=== PATIENT | female | born 1955 | race Caucasian/White ===

== ENCOUNTER 2017-03-01 14:21 | Emergency (ER) | payer MEDICARE, OTHER ==
[~2017-03-01] VITALS: Ht 167.6 cm; Wt 95.5 kg
[2017-03-01 14:27] VITALS: BP 114/47
[2017-03-01 14:38] LABS: GLUCOSE,POINT OF CARE 154 MG/DL (70-110)
== END 2017-03-01 17:31 | disposition home or self-care (01) ==
LOC: EMS 14:24
DX: M79.672 Pain in left foot (principal); E11.9 Type 2 diabetes mellitus without complications
CPT/HCPCS: 82962; 99284

== ENCOUNTER 2017-04-06 14:35 | Emergency (ER) | payer MEDICARE, OTHER ==
[~2017-04-06] VITALS: Ht 165.1 cm; Wt 90.9 kg
[2017-04-06] MEDS ORDERED: [UNRECOGNIZED DRUG - REMARK] PO (14:51)
[2017-04-06] MEDS ORDERED: CINN500C4 PO (14:51)
[2017-04-06 15:03] LABS: GLUCOSE,POINT OF CARE 229 MG/DL (70-110)
[2017-04-06 16:32] VITALS: BP 140/60
== END 2017-04-06 18:33 | disposition left against medical advice (07) ==
LOC: EMS 14:36
DX: K64.9 Unspecified hemorrhoids (principal); E11.9 Type 2 diabetes mellitus without complications; Z53.21 Procedure and treatment not carried out due to patient leaving prior to being seen by health care provider
CPT/HCPCS: 82962

== ENCOUNTER → 2017-09-21 | Outpatient (CLI) | payer MEDICARE, OTHER ==
[~2017-09-21] MED LIST: CINN500C4 PO; [UNRECOGNIZED DRUG - REMARK] PO
== END | disposition home or self-care (01) ==
LOC: RADPV 13:28
PROVIDERS: ATTEND Internal Medicine Cardiovascular Disease
DX: I77.1 Stricture of artery (principal)

== ENCOUNTER 2018-01-05 19:24 | Emergency (ER) | payer MEDICARE, OTHER ==
[~2018-01-05] VITALS: Ht 162.6 cm; Wt 93.2 kg
[2018-01-05] MEDS ORDERED: [UNRECOGNIZED DRUG - REMARK] PO (19:34)
[2018-01-05] MEDS ORDERED: [UNRECOGNIZED DRUG - REMARK] PO (19:34)
[2018-01-05] MEDS ORDERED: PERTUSS(ACELL),DIPH,TET VAC/PF 0.5 ML VIAL IM ONE (20:15)
[2018-01-05 20:48] VITALS: BP 132/80
== END 2018-01-05 20:51 | disposition home or self-care (01) ==
LOC: EMS 19:24
DX: S30.861A Insect bite (nonvenomous) of abdominal wall, initial encounter (principal); E11.9 Type 2 diabetes mellitus without complications; I10 Essential (primary) hypertension; E78.00 Pure hypercholesterolemia, unspecified; Z85.048 Personal history of other malignant neoplasm of rectum, rectosigmoid junction, and anus; Z90.49 Acquired absence of other specified parts of digestive tract; Z90.89 Acquired absence of other organs; Z79.899 Other long term (current) drug therapy; Z79.84 Long term (current) use of oral hypoglycemic drugs; W57.XXXA Bitten or stung by nonvenomous insect and other nonvenomous arthropods, initial encounter; Y93.89 Activity, other specified; Y92.89 Other specified places as the place of occurrence of the external cause; Y99.8 Other external cause status
CPT/HCPCS: 90471; 90715